=== PATIENT | male | born 1995 | race Caucasian/White ===

== ENCOUNTER 2023-04-25 13:10 | Emergency (ER) | payer BC ==
[2023-04-25 13:19] VITALS: TEMP 98.4
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
[2023-04-25 13:48] LABS: BASOPHIL % 0.3 % (0.0-0.4); Basophil (Absolute #) 0.03 x10^3/uL (0-0.4); Eosinophil % 0.3 % (0.00-5.0); Eosinophil (Absolute #) 0.03 x10^3/uL (0-0.5); Hematocrit 44.7 % (42-50); Hemoglobin 15.7 g/dL (12.5-18.0); IMMATURE GRAN # 0.04 x10^3u/L (0.00-0.03); IMMATURE GRAN % 0.4 % (0.00-0.4); Lymphocyte (Absolute #) 2.14 x10^3/uL (1.0-4.6); Lymphocytes % 23.6 % (24.0-44.0); Mean Cell Volume 80.5 fL (78-100); Mean Corpuscular Hemoglobin 28.3 pg (26-32); Mean Corpuscular Hgb Concent. 35.1 g/dL (32-36); Mean Platelet Volume 10.4 fL (7.5-11.0); Monocyte (Absolute #) 0.83 x10^3/uL (0.0-1.3); Monocytes % 9.2 % (0.0-12.0); Neutrophil % 66.2 % (36.0-66.0); Platelet Count 300 x10^3/uL (150-450); Red Blood Count 5.55 x10^6/uL (4.1-5.6); Red Cell Distribution Width 12.2 % (11.5-14.0); White Blood Count 9.1 x10^3/uL (4.0-10.5)
[2023-04-25 13:55] LABS: Appearance Clear (Clear); Bacteria None Seen /HPF (None Seen); Bilirubin Negative (Negative); Blood Negative (Negative); Epithelial Cells None Seen /HPF (None Seen); Glucose, Urine Negative (Negative); Hyaline Casts NONE SEEN /LPF (0-2); Ketones Trace (Negative); Leukocyte Esterase Negative (Negative); Nitrite Negative (Negative); Ph 7.5 (4.6-8.0); Protein,Urine Dip Negative (Negative); RBC 0-2 /HPF (0-5); Urobilinogen 0.2 mg/dL (0.2); WBC 0-2 /HPF (0-5)
[2023-04-25 14:04] LABS: ANION GAP 18.3 MEQ/L (5-15); Calcium 9.8 mg/dL (8.4-10.2); Creatinine 1 1.1 mg/dL (0.66-1.25); EST GLOMERULAR FILTRATION RATE 95.5 ML/MIN; Potassium 3.1 mmol/L (3.5-5.1); Total Protein 8.5 g/dL (6.3-8.2)
[2023-04-25 14:12] LABS: Amphetamine,Urine NEGATIVE (NEGATIVE); Barbiturate,Urine NEGATIVE (NEGATIVE); Benzodiazepine,Urine NEGATIVE (NEGATIVE); Cocaine,Urine NEGATIVE (NEGATIVE); Methadone,Urine NEGATIVE (NEGATIVE); Opiate,Urine NEGATIVE (NEGATIVE); PCP,Urine NEGATIVE (NEGATIVE); THC,Urine NEGATIVE (NEGATIVE)
[2023-04-25] MEDS ORDERED: Sodium Chloride 0.9% 1000 ML 1,000 ML IV STA (14:14)
[2023-04-25] MEDS ORDERED: Klor Con PO ONE ×2 (14:14→14:17)
[2023-04-25] MEDS ORDERED: Sodium Chloride 0.9% 1000 ML 1,000 ML ONE (14:17)
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
[2023-04-25 14:22] LABS: ADD URINE CULTURE? NO (NO)
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
[2023-04-25] MEDS ORDERED: CLONIDINE 0.1 MG TABLET PO ONE (19:43)
[2023-04-25] MEDS ORDERED: CLONIDINE 0.1 MG TABLET ONE (19:45)
[2023-04-25 22:02] VITALS: BP 142/114; PULSE 92; RESP 18
[2023-04-26 02:23] VITALS: O2SAT 100
== END 2023-04-25 22:28 | disposition short-term general hospital (02) ==
LOC: ED 13:10
DX: Z04.1 Encounter for examination and observation following transport accident (principal); F23 Brief psychotic disorder; I10 Essential (primary) hypertension; Z28.310 Unvaccinated for COVID-19; Z72.0 Tobacco use
CPT/HCPCS: 36000; 36415; 70450; 71260; 72125; 74177; 80053; 80307; 81001; 82077; 82150; 83690; 85025; 96360; 99285; 99291; A9270-GY